=== PATIENT | male | born 1945 | race Caucasian/White ===

== ENCOUNTER → 2017-07-11 | Outpatient (CLI) | payer MEDICARE ==
[~2017-07-11] MED LIST: ALLO100T30 PO; ASPI325T17 PO; BUDE10.22 INH; CALC0.254 PO; CEPH-368 PO; CLOP75TA PO; CYCL-259 PO; ERGO500017 PO; FOLI-17 PO; FURO80TA77 PO; INSU100I13 SQ; LEVO750T6 PO; LORA10TA75 PO; METH750T87 PO; OXYC15TA PO; OXYC80TA25 PO; PANT40TA5 PO; POLY17PO5 PO; POTA10TA11 PO; POTA20PA PO; SENN1TAB67 PO; SIMV40TA3 PO; TIZA4TAB PO
== END | disposition home or self-care (01) ==
LOC: CFH 15:54
PROVIDERS: ATTEND Pain Medicine Interventional Pain Medicine
DX: M96.1 Postlaminectomy syndrome, not elsewhere classified (principal)
CPT/HCPCS: 71045